=== PATIENT | male | born 1965 | race Caucasian/White ===

== ENCOUNTER 2017-09-16 12:54 | Inpatient (IN) | payer OTHER ==
[2017-09-16] MEDS: ONDANSETRON 4 MG INJ IV ×2 (13:25→14:39)
[2017-09-16] MEDS: KETOROLAC 30 MG INJ IV (13:25)
[2017-09-16] MEDS: HYDROmorphONE 0.5 MG/0.5 ML SYG IV ×2 (13:25→14:39)
[2017-09-16] MEDS: SOD CHLORIDE 0.9% 1,000 ML IV (13:26)
[2017-09-16] MEDS: TAMSULOSIN (SR) 0.4 MG CAP PO (13:27)
[2017-09-16 13:36] LABS: ADD MAN DIFF? NO
[2017-09-16 13:39] LABS: ABNORMAL IP MESSAGE 1; BASOPHILS % 0.2 % (0.0-2.0); HEMATOCRIT 40.9 % (42.0-52.0); HEMOGLOBIN 14.5 g/dl (14.0-18.0); LYMPHOCYTES # 0.8 10^3/ul (0.8-2.9); LYMPHOCYTES % 3.3 % (15.0-51.0); MEAN CORPUSCULAR HEMOGLOBIN 32.9 pg (29.0-33.0); MEAN CORPUSCULAR HGB CONC 35.5 g/dl (32.0-37.0); MEAN CORPUSCULAR VOLUME 92.7 fl (82.0-101.0); MEAN PLATELET VOLUME 9.8 fl (7.4-10.4); MONOCYTE # 1.6 10^3/ul (0.3-0.9); MONOCYTES % 6.3 % (0.0-11.0); NEUTROPHILS % 89.6 % (39.0-77.0); PLATELET COUNT 295 10^3/UL (140-415); POSITIVE DIFF @See below; RED BLOOD COUNT 4.41 10^6/ul (4.70-6.10); RED CELL DISTRIBUTION WIDTH 12.4 % (11.5-14.5)
[2017-09-16 13:39] LABS: WHITE BLOOD COUNT 24.6 10^3/ul (4.8-10.8)
[2017-09-16 14:06] LABS: ALANINE AMINOTRANSFERASE 34 IU/L (13-69); ALBUMIN 4.5 g/dl (3.3-4.9); ALBUMIN/GLOBULIN RATIO 1.36; ALKALINE PHOSPHATASE 74 IU/L (42-121); AMYLASE 93 U/L (11-123); ANION GAP 20 (8-16); ASPARTATE AMINO TRANSFERASE 21 IU/L (15-46); BILIRUBIN,INDIRECT 0.6 mg/dl (0-1.1); BILIRUBIN,TOTAL 0.6 mg/dl (0.2-1.3); BLOOD UREA NITROGEN 19 mg/dl (7-20); CALCIUM 9.4 mg/dl (8.4-10.2); CARBON DIOXIDE 25 mmol/L (21-31); CHLORIDE 106 mmol/L (97-110); CREATININE 1.07 mg/dl (0.61-1.24); GLUCOSE 120 mg/dl (70-220); LIPASE 72 U/L (23-300); POTASSIUM 4.8 mmol/L (3.5-5.1); SODIUM 146 mmol/L (135-144); TOTAL PROTEIN 7.8 g/dl (6.1-8.1)
[2017-09-16 14:11] LABS: INR 0.99; PROTIME 13.2 Sec (11.9-14.9)
[2017-09-16 14:12] LABS: PARTIAL THROMBOPLASTIN TIME 24.8 Sec (25.0-35.0)
[2017-09-16 14:16] LABS: TROPONIN-I < 0.012 ng/ml (0.00-0.12)
[2017-09-16] MEDS: PIPER-TAZO 3.375 GM IV (PMX) 100 ML IVPB (15:37)
[2017-09-16] MEDS ORDERED: ROCURONIUM 50 MG INJ (16:42)
[2017-09-16] MEDS ORDERED: MIDAZOLAM 1 MG/ML 2 ML INJ (16:42)
[2017-09-16] MEDS ORDERED: PROPOFOL 20 ML (16:42)
[2017-09-16] MEDS ORDERED: ROPIVACAINE 0.5 % 30 ML VIAL ×2 (16:59→17:01)
[2017-09-16] MEDS ORDERED: NACL 0.9% 3 ML SYG IV (17:00)
[2017-09-16] MEDS ORDERED: HYDROmorphONE 0.5 MG/0.5 ML SYG IV (17:00)
[2017-09-16] MEDS ORDERED: PIPER-TAZO 3.375 GM IV (PMX) 100 ML (17:19)
[2017-09-16] MEDS ORDERED: PHENYLephrine (100 MCG/ML) 5ML SYG ×2 (17:23→18:05)
[2017-09-16] MEDS ORDERED: PIPER-TAZO 3.375 GM IV (PMX) 100 ML IVPB ×2 (17:30→22:00)
[2017-09-16] MEDS ORDERED: METOCLOPRAMIDE 10 MG INJ (18:00)
[2017-09-16] MEDS ORDERED: ONDANSETRON 4 MG INJ (18:00)
[2017-09-16] MEDS ORDERED: SUGAMMADEX SODIUM 200 MG/2 ML VIAL IV (18:00)
[2017-09-16] MEDS ORDERED: DEXAMETHASONE 4 MG/ML 1 ML INJ (18:00)
[2017-09-16] MEDS ORDERED: PHENYLephrine 10 MG INJ (18:05)
[2017-09-16] MEDS ORDERED: HETASTARCH 6% NACL 500 ML (18:10)
[2017-09-16] MEDS ORDERED: MEPERIDINE 100 MG INJ (18:13)
[2017-09-16] MEDS ORDERED: ACETAMINOPHEN 1000MG/100ML IV 100 ML (18:14)
[2017-09-16] MEDS ORDERED: D5W-0.45 NACL + KCL 20 MEQ 1,000 ML IV (18:20)
[2017-09-16] MEDS ORDERED: NALOXONE (0.4 MG/ML) INJ (18:24)
[2017-09-16] MEDS ORDERED: hydrALAzine 20 MG INJ IV (18:30)
[2017-09-16] MEDS ORDERED: LABETALOL HCL 20MG INJ IV (18:30)
[2017-09-16] MEDS ORDERED: FENTAnyl 50 MCG/ML VIAL IV ×3 (18:30)
[2017-09-16] MEDS ORDERED: ALBUMIN HUMAN 5% 250 ML IV (18:30)
[2017-09-16] MEDS ORDERED: HYDROmorphONE (0.2 MG/ML) 10ML SYG IV ×3 (18:30)
[2017-09-16] MEDS ORDERED: HYDROCODONE/APAP (10/325) TAB PO (18:30)
[2017-09-16] MEDS ORDERED: METOCLOPRAMIDE 10 MG INJ IV ×2 (18:30)
[2017-09-16] MEDS ORDERED: ZOLPIDEM 5 MG TAB PO (18:30)
[2017-09-16] MEDS ORDERED: DIPHENHYDRAMINE 50 MG INJ IV (18:30)
[2017-09-16] MEDS ORDERED: EPHEDrine SULFATE 50 MG/5 ML SYG IV (18:30)
[2017-09-16] MEDS ORDERED: HYDROCODONE/APAP (5/325) TAB PO (18:30)
[2017-09-16] MEDS ORDERED: morphine 2 MG INJ IV (18:30)
[2017-09-16] MEDS ORDERED: ONDANSETRON 4 MG INJ IV (18:30)
[2017-09-16] MEDS ORDERED: MEPERIDINE 25 MG INJ IV (18:30)
[2017-09-16] MEDS ORDERED: HYDROmorphONE 0.2 MG/ML PCA (18:32)
[2017-09-16] MEDS: NALOXONE (0.4 MG/ML) INJ IV (18:59)
[2017-09-16] MEDS: HYDROmorphONE 0.2 MG/ML PCA IV (19:10)
[2017-09-16] MEDS: CEFAZOLIN 1 GM/50 ML (PMX) 50 ML IVPB (19:21)
[2017-09-16] MEDS: metroNIDAZOLE 500 MG/NS (PMX) 100 ML IVPB (19:35)
[2017-09-16 20:17] LABS: TROPONIN-I < 0.012 ng/ml (0.00-0.12)
[2017-09-17] MEDS: D5W-0.45 NACL + KCL 20 MEQ 1,000 ML IV ×2 (03:01→10:37)
[2017-09-17] MEDS: PANTOPRAZOLE 40 MG INJ IV (05:09)
[2017-09-17] MEDS: CEFAZOLIN 1 GM/50 ML (PMX) 50 ML IVPB ×3 (05:09→21:21)
[2017-09-17 05:16] LABS: ADD MAN DIFF? NO
[2017-09-17 05:25] LABS: BASOPHILS % 0.1 % (0.0-2.0); HEMATOCRIT 32.5 % (42.0-52.0); HEMOGLOBIN 11.3 g/dl (14.0-18.0); LYMPHOCYTES # 0.8 10^3/ul (0.8-2.9); LYMPHOCYTES % 4.1 % (15.0-51.0); MEAN CORPUSCULAR HEMOGLOBIN 32.8 pg (29.0-33.0); MEAN CORPUSCULAR HGB CONC 34.8 g/dl (32.0-37.0); MEAN CORPUSCULAR VOLUME 94.5 fl (82.0-101.0); MONOCYTES % 5.5 % (0.0-11.0); NEUTROPHIL # 16.5 10^3/ul (1.6-7.5); PLATELET COUNT 229 10^3/UL (140-415); RED BLOOD COUNT 3.44 10^6/ul (4.70-6.10); RED CELL DISTRIBUTION WIDTH 12.9 % (11.5-14.5)
[2017-09-17 05:25] LABS: WHITE BLOOD COUNT 18.4 10^3/ul (4.8-10.8)
[2017-09-17 05:53] LABS: ANION GAP 16 (8-16); BLOOD UREA NITROGEN 18 mg/dl (7-20); CALCIUM 7.8 mg/dl (8.4-10.2); CARBON DIOXIDE 24 mmol/L (21-31); CHLORIDE 106 mmol/L (97-110); CREATININE 1.02 mg/dl (0.61-1.24); GLUCOSE 139 mg/dl (70-220); POTASSIUM 4.5 mmol/L (3.5-5.1); SODIUM 141 mmol/L (135-144)
[2017-09-17] MEDS: ENOXAPARIN 40 MG/0.4 ML SYG SC (06:54)
[2017-09-17] MEDS: HYDROmorphONE 0.2 MG/ML PCA IV (10:36)
[2017-09-17] MEDS: AL HYDROX/MG HYDROX/SIMETH 30 ML CUP PO (21:54)
[2017-09-18] MEDS: HYDROmorphONE 0.2 MG/ML PCA IV (03:25)
[2017-09-18 05:21] LABS: ADD MAN DIFF? NO
[2017-09-18 05:25] LABS: BASOPHILS % 0.2 % (0.0-2.0); EOSINOPHILS # 0.1 10^3/ul (0.0-0.5); EOSINOPHILS % 0.9 % (0.0-7.0); HEMATOCRIT 33.3 % (42.0-52.0); HEMOGLOBIN 11.3 g/dl (14.0-18.0); LYMPHOCYTES # 1.2 10^3/ul (0.8-2.9); LYMPHOCYTES % 9.2 % (15.0-51.0); MEAN CORPUSCULAR HEMOGLOBIN 32.8 pg (29.0-33.0); MEAN CORPUSCULAR HGB CONC 33.9 g/dl (32.0-37.0); MEAN CORPUSCULAR VOLUME 96.5 fl (82.0-101.0); MEAN PLATELET VOLUME 9.9 fl (7.4-10.4); MONOCYTES % 7.7 % (0.0-11.0); NEUTROPHIL # 10.3 10^3/ul (1.6-7.5); NEUTROPHILS % 81.5 % (39.0-77.0); PLATELET COUNT 231 10^3/UL (140-415); RED BLOOD COUNT 3.45 10^6/ul (4.70-6.10); RED CELL DISTRIBUTION WIDTH 12.8 % (11.5-14.5)
[2017-09-18 05:25] LABS: WHITE BLOOD COUNT 12.7 10^3/ul (4.8-10.8)
[2017-09-18] MEDS: PANTOPRAZOLE 40 MG INJ IV (05:59)
[2017-09-18] MEDS: CEFAZOLIN 1 GM/50 ML (PMX) 50 ML IVPB ×3 (05:59→21:50)
[2017-09-18] MEDS: ENOXAPARIN 40 MG/0.4 ML SYG SC (06:08)
[2017-09-18] MEDS: LOSARTAN 25 MG TAB PO (09:30)
[2017-09-19] MEDS: HYDROmorphONE 0.2 MG/ML PCA IV ×2 (01:53→23:28)
[2017-09-19] MEDS: PANTOPRAZOLE 40 MG INJ IV (06:19)
[2017-09-19] MEDS: CEFAZOLIN 1 GM/50 ML (PMX) 50 ML IVPB ×3 (06:20→22:57)
[2017-09-19] MEDS: ENOXAPARIN 40 MG/0.4 ML SYG SC (06:30)
[2017-09-19 07:32] LABS: ADD MAN DIFF? NO
[2017-09-19 07:40] LABS: WHITE BLOOD COUNT 11.5 10^3/ul (4.8-10.8)
[2017-09-19 07:40] LABS: BASOPHILS % 0.2 % (0.0-2.0); EOSINOPHILS # 0.3 10^3/ul (0.0-0.5); EOSINOPHILS % 2.3 % (0.0-7.0); HEMATOCRIT 34.6 % (42.0-52.0); HEMOGLOBIN 11.8 g/dl (14.0-18.0); LYMPHOCYTES # 1.1 10^3/ul (0.8-2.9); LYMPHOCYTES % 9.2 % (15.0-51.0); MEAN CORPUSCULAR HEMOGLOBIN 32.9 pg (29.0-33.0); MEAN CORPUSCULAR HGB CONC 34.1 g/dl (32.0-37.0); MEAN CORPUSCULAR VOLUME 96.4 fl (82.0-101.0); MEAN PLATELET VOLUME 9.7 fl (7.4-10.4); MONOCYTE # 1.1 10^3/ul (0.3-0.9); MONOCYTES % 9.3 % (0.0-11.0); NEUTROPHIL # 9.1 10^3/ul (1.6-7.5); NEUTROPHILS % 78.6 % (39.0-77.0); PLATELET COUNT 261 10^3/UL (140-415); RED BLOOD COUNT 3.59 10^6/ul (4.70-6.10); RED CELL DISTRIBUTION WIDTH 12.4 % (11.5-14.5)
[2017-09-19] MEDS: LOSARTAN 25 MG TAB PO (09:17)
[2017-09-19] MEDS: ACETAMINOPHEN 325 MG TAB PO (09:49)
[2017-09-19] MEDS: morphine 2 MG INJ IV (10:48)
[2017-09-19] MEDS ORDERED: BARIUM SULF 2% 450 ML BTL (BERRY SMOOTHIE) PO (11:00)
[2017-09-19 12:08] LABS: LACTIC ACID 0.8 mmol/L (0.5-2.0)
[2017-09-19] MEDS ORDERED: FENTAnyl 50 MCG/ML VIAL ×2 (12:27→13:48)
[2017-09-19 12:37] LABS: ANION GAP 12 (8-16); BLOOD UREA NITROGEN 14 mg/dl (7-20); CALCIUM 8.1 mg/dl (8.4-10.2); CARBON DIOXIDE 24 mmol/L (21-31); CHLORIDE 105 mmol/L (97-110); CREATININE 0.88 mg/dl (0.61-1.24); GLUCOSE 91 mg/dl (70-220); POTASSIUM 3.7 mmol/L (3.5-5.1); SODIUM 137 mmol/L (135-144)
[2017-09-19] MEDS ORDERED: BUPIVACAINE 0.25% (MPF) 30 ML INJ (13:28)
[2017-09-19] MEDS ORDERED: DIPHENHYDRAMINE 50 MG INJ IV (13:30)
[2017-09-19] MEDS ORDERED: FENTAnyl 50 MCG/ML VIAL IV ×2 (13:30)
[2017-09-19] MEDS ORDERED: METOCLOPRAMIDE 10 MG INJ IV (13:30)
[2017-09-19] MEDS ORDERED: HYDROmorphONE (0.2 MG/ML) 10ML SYG IV (13:30)
[2017-09-19] MEDS ORDERED: SUCCINYLCHOLINE CHLORIDE 100 MG/5 ML SYG IV (13:33)
[2017-09-19] MEDS ORDERED: ROCURONIUM 50 MG INJ (13:33)
[2017-09-19] MEDS ORDERED: PROPOFOL 20 ML (13:33)
[2017-09-19] MEDS ORDERED: CEFAZOLIN 1 GM INJ (13:33)
[2017-09-19] MEDS ORDERED: SUGAMMADEX SODIUM 200 MG/2 ML VIAL IV (13:33)
[2017-09-19] MEDS ORDERED: LIDOCAINE 100 MG SYRINGE (13:33)
[2017-09-19] MEDS ORDERED: ROPIVACAINE 0.5 % 30 ML VIAL (13:34)
[2017-09-19] MEDS ORDERED: morphine 2 MG INJ IV (14:00)
[2017-09-19] MEDS ORDERED: ONDANSETRON 4 MG INJ IV (14:00)
[2017-09-19] MEDS: HYDROmorphONE (0.2 MG/ML) 10ML SYG IV ×3 (14:02→14:57)
[2017-09-19] MEDS: ONDANSETRON 4 MG INJ IV (14:02)
[2017-09-19] MEDS ORDERED: MEPERIDINE 25 MG INJ (14:06)
[2017-09-19] MEDS: MEPERIDINE 25 MG INJ IV (14:08)
[2017-09-20] MEDS: ACETAMINOPHEN 325 MG TAB PO ×2 (00:50→14:31)
[2017-09-20 05:32] LABS: ADD MAN DIFF? NO
[2017-09-20 05:33] LABS: BASOPHILS % 0.2 % (0.0-2.0); EOSINOPHILS # 0.2 10^3/ul (0.0-0.5); HEMATOCRIT 34.2 % (42.0-52.0); HEMOGLOBIN 11.9 g/dl (14.0-18.0); LYMPHOCYTES % 8.7 % (15.0-51.0); MEAN CORPUSCULAR HEMOGLOBIN 32.8 pg (29.0-33.0); MEAN CORPUSCULAR HGB CONC 34.8 g/dl (32.0-37.0); MEAN CORPUSCULAR VOLUME 94.2 fl (82.0-101.0); MEAN PLATELET VOLUME 9.7 fl (7.4-10.4); MONOCYTE # 1.2 10^3/ul (0.3-0.9); MONOCYTES % 10.7 % (0.0-11.0); NEUTROPHIL # 8.7 10^3/ul (1.6-7.5); NEUTROPHILS % 77.8 % (39.0-77.0); PLATELET COUNT 288 10^3/UL (140-415); RED BLOOD COUNT 3.63 10^6/ul (4.70-6.10); RED CELL DISTRIBUTION WIDTH 12.1 % (11.5-14.5)
[2017-09-20 05:33] LABS: WHITE BLOOD COUNT 11.1 10^3/ul (4.8-10.8)
[2017-09-20] MEDS: CEFAZOLIN 1 GM/50 ML (PMX) 50 ML IVPB ×3 (06:27→21:01)
[2017-09-20] MEDS: PANTOPRAZOLE 40 MG INJ IV (06:27)
[2017-09-20] MEDS: ENOXAPARIN 40 MG/0.4 ML SYG SC (06:32)
[2017-09-20] MEDS: LOSARTAN 25 MG TAB PO (09:15)
[2017-09-20] MEDS: HYDROmorphONE 0.2 MG/ML PCA IV (15:11)
[2017-09-21] MEDS: PANTOPRAZOLE 40 MG INJ IV (05:34)
[2017-09-21] MEDS: CEFAZOLIN 1 GM/50 ML (PMX) 50 ML IVPB ×3 (05:34→21:27)
[2017-09-21 05:42] LABS: ADD MAN DIFF? NO
[2017-09-21 05:48] LABS: WHITE BLOOD COUNT 10.4 10^3/ul (4.8-10.8)
[2017-09-21 05:48] LABS: BASOPHILS % 0.3 % (0.0-2.0); EOSINOPHILS # 0.3 10^3/ul (0.0-0.5); EOSINOPHILS % 2.7 % (0.0-7.0); HEMATOCRIT 31.7 % (42.0-52.0); HEMOGLOBIN 11.2 g/dl (14.0-18.0); LYMPHOCYTES # 0.8 10^3/ul (0.8-2.9); LYMPHOCYTES % 7.9 % (15.0-51.0); MEAN CORPUSCULAR HEMOGLOBIN 33.1 pg (29.0-33.0); MEAN CORPUSCULAR HGB CONC 35.3 g/dl (32.0-37.0); MEAN CORPUSCULAR VOLUME 93.8 fl (82.0-101.0); MEAN PLATELET VOLUME 9.7 fl (7.4-10.4); NEUTROPHIL # 8.2 10^3/ul (1.6-7.5); NEUTROPHILS % 78.6 % (39.0-77.0); NUCLEATED RED BLOOD CELLS% 0.3 /100WBC (0.0-0.0); PLATELET COUNT 292 10^3/UL (140-415); RED BLOOD COUNT 3.38 10^6/ul (4.70-6.10); RED CELL DISTRIBUTION WIDTH 12.2 % (11.5-14.5)
[2017-09-21] MEDS: ACETAMINOPHEN 325 MG TAB PO (05:50)
[2017-09-21 06:22] LABS: ANION GAP 16 (8-16); BLOOD UREA NITROGEN 13 mg/dl (7-20); CALCIUM 8.5 mg/dl (8.4-10.2); CARBON DIOXIDE 26 mmol/L (21-31); CHLORIDE 103 mmol/L (97-110); CREATININE 0.87 mg/dl (0.61-1.24); GLUCOSE 107 mg/dl (70-220); POTASSIUM 3.7 mmol/L (3.5-5.1); SODIUM 141 mmol/L (135-144)
[2017-09-21] MEDS: ENOXAPARIN 40 MG/0.4 ML SYG SC (06:45)
[2017-09-21] MEDS: LOSARTAN 25 MG TAB PO (09:14)
[2017-09-21] MEDS: HYDROmorphONE 0.2 MG/ML PCA IV (16:16)
[2017-09-22] MEDS: CEFAZOLIN 1 GM/50 ML (PMX) 50 ML IVPB (06:22)
[2017-09-22] MEDS: PANTOPRAZOLE 40 MG INJ IV (06:22)
[2017-09-22] MEDS: ENOXAPARIN 40 MG/0.4 ML SYG SC (06:29)
[2017-09-22] MEDS: LOSARTAN 25 MG TAB PO (09:15)
[2017-09-22] MEDS: OXYCODONE/ACETAMINOPHEN (5/325) TAB PO ×3 (11:08→18:52)
[2017-09-22] MEDS: CEPHALEXIN 500 MG CAP PO ×2 (12:55→17:47)
[2017-09-22] MEDS: metroNIDAZOLE 500 MG TAB PO ×2 (14:08→21:27)
[2017-09-23] MEDS: CEPHALEXIN 500 MG CAP PO ×3 (00:21→13:35)
[2017-09-23] MEDS: OXYCODONE/ACETAMINOPHEN (5/325) TAB PO ×3 (00:23→13:36)
[2017-09-23] MEDS: PANTOPRAZOLE (EC) 40 MG TAB PO (06:05)
[2017-09-23] MEDS: metroNIDAZOLE 500 MG TAB PO (06:05)
[2017-09-23] MEDS: ENOXAPARIN 40 MG/0.4 ML SYG SC (06:09)
[2017-09-23] MEDS: LOSARTAN 25 MG TAB PO (09:35)
== END 2017-09-23 13:43 | disposition home health service (06) | DRG 854 ==
LOC: E/R 12:54 → MS1 18:12 → E/R 18:12 → REC 16:40 → MS1 20:15
PROC: 0DTN4ZZ Resection of Sigmoid Colon, Percutaneous Endoscopic Approach (ICD-10-PCS; principal; 2017-09-16 17:06)
PROC: 0D1M4Z4 Bypass Descending Colon to Cutaneous, Percutaneous Endoscopic Approach (ICD-10-PCS; 2017-09-16 17:06)
PROC: 0YQ60ZZ Repair Left Inguinal Region, Open Approach (ICD-10-PCS; 2017-09-16 17:06)
DX: A41.9 Sepsis, unspecified organism (principal); K57.20 Diverticulitis of large intestine with perforation and abscess without bleeding; K40.30 Unilateral inguinal hernia, with obstruction, without gangrene, not specified as recurrent; Z85.46 Personal history of malignant neoplasm of prostate; Z90.79 Acquired absence of other genital organ(s); Z87.442 Personal history of urinary calculi
CPT/HCPCS: 74176; 80048; 80053; 82150; 83605; 83690; 84484; 85025; 85610; 85730; 87070; 87075; 87086; 88302; 88305; 93005; 96374; 96375; 96376; 97116; 97161; 97164; 97530; 99291-25